=== PATIENT | female | born 1995 | race African-American/Black ===

== ENCOUNTER 2021-01-21 15:14 | Emergency (ER) | payer OTHER ==
[~2021-01-21] VITALS: Ht 170.2 cm; Wt 90.0 kg
[2021-01-21] MEDS ORDERED: KETOROLAC 60MG/2ML VIAL IM ONE (16:00)
[2021-01-21] MEDS ORDERED: METHOCARBAMOL 500MG TABLET PO ONE (16:00)
[2021-01-21 16:24] VITALS: BP 122/76
[2021-01-21] MEDS ORDERED: NAPR500T7 MT (17:22)
[2021-01-21] MEDS ORDERED: METH-773 MT (17:22)
== END 2021-01-21 17:41 | disposition home or self-care (01) ==
LOC: ER 15:14
DX: S16.1XXA Strain of muscle, fascia and tendon at neck level, initial encounter (principal); V49.59XA Passenger injured in collision with other motor vehicles in traffic accident, initial encounter; Y93.89 Activity, other specified; Y92.89 Other specified places as the place of occurrence of the external cause; Y99.8 Other external cause status; M79.18 Myalgia, other site; F41.9 Anxiety disorder, unspecified
CPT/HCPCS: 73030; 81025; 96372; 99283; J1885